=== PATIENT | male | born 1935 | race Caucasian/White ===

== ENCOUNTER 2017-05-01 16:31 | Inpatient (IN) | payer MEDICARE, MEDICAID ==
[~2017-05-01] VITALS: Ht 175.3 cm; Wt 82.3 kg
--- NOTE | ~2017-05-01 | CON ---
PATIENT'S NAME: BEA GARCIA [facility] AGE: 82 Y [address] ROOM: [place] [address] LOCATION: GPCU ADMIT DATE: 05/01/2017 Consultation DISCHARGE DATE: FAMILY PHYSICIAN: SINAN PORRAS MD ATTENDING PHYSICIAN: LUKAS MARSHALL REFERRING PHYSICIAN: LEXIE CASTRO MD REFERRING PROVIDER: Dr. Marshall REASON FOR CONSULTATION: Abdominal distention. HISTORY OF PRESENT ILLNESS: This is a pleasant, 82-year-old gentleman who is known to our Gastroenterology Services with chronic abdominal distention secondary to chronic pseudoobstruction. The patient was hospitalized in February 2016 secondary to abdominal distention, and he did undergo decompression via colonoscopy. At that time, he was also placed on Reglan. The patient was readmitted in October 2016 for the same issues, though no decompression via colonoscopy was warranted at that time. He did relieve well with NG as well as Flexi-Seal. The patient resides at a assisted, and nursing staff noticed over the past few days that he was becoming more distended. Primary physician wanted him admitted to the hospital. On admission, they did place an NG tube with a total of 225 mL out. A Flexi-Seal was also placed with good output of 800 mL. The patient denies any pain. He denies any shortness of breath, nausea, or vomiting at this time. PAST MEDICAL HISTORY: Chronic systolic heart failure; chronic atrial fibrillation, not on any long- term anticoagulation; essential hypertension; chronic kidney disease, stage 3; type 2 diabetes mellitus; chronic constipation with colonic pseudoobstruction; hypothyroidism; and morbid obesity. SOCIAL HISTORY: The patient currently resides at a assisted. Distant history of smoking. No alcohol or illicit drug use. FAMILY HISTORY: Significant for pancreatic cancer. The patient's brother had ischemic heart disease. ALLERGIES: NO KNOWN MEDICATION ALLERGIES. CURRENT MEDICATIONS: PATIENT'S NAME: BEA GARCIA [facility] AGE: 82 Y [address] ROOM: [place] [address] LOCATION: GPCU ADMIT DATE: 05/01/2017 Consultation DISCHARGE DATE: FAMILY PHYSICIAN: SINAN PORRAS MD ATTENDING PHYSICIAN: KHALID,GAYTAN A Please refer to the medication administration record. REVIEW OF SYSTEMS: All-point review of systems was completed, all were negative except for those identified in the History of Present Illness. PHYSICAL EXAMINATION: GENERAL: A very pleasant, 82-year-old male who appears to be in no acute distress. VITAL SIGNS: Temperature 98.2, pulse of 81, respirations of 16, blood pressure 118/66, and oxygen saturation is 97% on room air. SKIN: [place], warm, and dry. No jaundice. HEENT: Head is normocephalic and atraumatic. Pupils are equal, round, and reactive to light. Sclerae are clear, nonicteric. NG tube is in place, connected to low intermittent suction. NECK: Soft and supple. CARDIOVASCULAR: Regular. Normal S1 and S2. RESPIRATORY: Respirations even and unlabored. Lungs clear to auscultation. ABDOMEN: Soft. Slightly distended. Bowel sounds are positive x4 quadrants. Flexi-Seal is in place as well. MUSCULOSKELETAL: No muscle weakness or atrophy. EXTREMITIES: No edema. NEUROLOGICAL: Grossly nonfocal. LABORATORY AND DIAGNOSTIC DATA: White blood cell count 8.7, hemoglobin of 10.8, hematocrit of 34.3, and platelets of 161. Chemistry panel includes a glucose of 101, BUN of 87, creatinine of 3.3, sodium 141, potassium of 4.0, chloride of 113, and CO2 of 16. Albumin of 3.0. Phosphorus of 4.5. Alkaline phosphatase was slightly elevated on admission at 159. Prothrombin time 10.5, INR is 1.00, and PTT of 27. TSH was 4.10 on admission as well. Abdominal x-ray was obtained on admission, showing gas-filled distended colon consistent with colonic pseudoobstruction. ASSESSMENT AND PLAN: Again, this is a very pleasant, 82-year-old gentleman who is known to our Gastroenterology Services with chronic colonic pseudoobstruction. The patient has required colonoscopy and decompression. On admission, NG tube was placed as well as Flexi-Seal with good output. The patient denies any complaints and/or pain. His abdomen is soft and nontender. At this time, no colonic decompression is recommended via colonoscopy as it appears that the Flexi-Seal and NG tube have assisted in his distention. Maintaining a good bowel pattern on dismissal with MiraLAX and possible lactulose is recommended. Further recommendations to be given over the course of the patient's hospitalization. PATIENT'S NAME: BEA GARCIA [facility] AGE: 82 Y [address] ROOM: [id number] [place], [place] [address] LOCATION: [facility] ADMIT DATE: 05/01/2017 Consultation DISCHARGE DATE: FAMILY PHYSICIAN: SINAN PORRAS MD ATTENDING PHYSICIAN: LUKAS MARSHALL Thank you for this consult. RICKIE [place] APRN FOR MD KEAGAN PEREZ/ryne /[id number] d: 05/02/17 1450 t: 05/03/17 1029, CONSULTATION REPORT
--- NOTE | ~2017-05-01 | ER ---
PATIENT'S NAME: RADHA [facility] AGE: 82 Y [address] ROOM: [address] [place], [place] [address] LOCATION: GPCU ADMIT DATE: 05/01/2017 ER/Outpatient Report DISCHARGE DATE: FAMILY PHYSICIAN: SINAN LUCIANO MD ATTENDING PHYSICIAN: LUKAS MARSHALL TIME OF ARRIVAL: 1631 hours. TIME OF EVALUATION: 1704 hours. CHIEF COMPLAINT: Bloating and shortness of breath. HISTORY OF PRESENT ILLNESS: The patient is an 82-year-old male presents to the emergency department today with chief complaint of abdominal bloating and shortness of breath. He reports this started about 14 days prior to arrival. He is accompanied by his who is the primary history provider. The patient does have history of dementia. She reports that this bloating has just progressively gotten worse. He does have a history of this in the past. Apparently has episodes of bloating. He is also having shortness of breath and cough. Denies any chest pain. No nausea or vomiting. No abdominal pain. No fevers or chills. No nausea, vomiting, diarrhea, or constipation. The patient is a resident at [facility]. He has gained about 12 pounds over the past 2 weeks. PAST MEDICAL HISTORY: Chronic systolic heart failure, atrial fibrillation, essential hypertension, chronic kidney disease, type 2 diabetes, chronic constipation with colonic pseudo-obstruction, hypothyroidism, and morbid obesity. PAST SURGICAL HISTORY: None known. SOCIAL HISTORY: The patient currently is at [facility] resident. Denies any tobacco, alcohol, or illicit drug use. ALLERGIES: NO KNOWN DRUG ALLERGY. MEDICATIONS: Please see list. PATIENT'S NAME: RADHA [facility] AGE: 82 Y [address] ROOM: [address] [place] [id number] LOCATION: GPCU ADMIT DATE: 05/01/2017 ER/Outpatient Report DISCHARGE DATE: FAMILY PHYSICIAN: SINAN LUCIANO MD ATTENDING PHYSICIAN: LUKAS MARSHALL PRIMARY CARE DOCTOR,: Sinan Luciano MD. REVIEW OF SYSTEMS: All systems are reviewed by myself and are negative with the exception of those discussed in the HPI and past medical history. PHYSICAL EXAMINATION: VITAL SIGNS: Blood pressure 171/102, pulse 64, respiratory rate 16, temperature 98, oxygen saturation 96% on room air. GENERAL: The patient is an 82-year-old male, appears stated age, no acute distress. HEENT: Head normocephalic, atraumatic. Pupils are equal, round, and reactive to light and accommodation. Extraocular motions are intact. NECK: Supple. There is no nuchal rigidity. CARDIOVASCULAR: Regular rate and rhythm. LUNGS: With diffuse crackles noted bilaterally, worse at the bases. ABDOMEN: Tense, distended with tympanic percussion noted. Bowel sounds are present. There is no tenderness to palpation noted. No rebound, rigidity, or guarding. EXTREMITIES: 2+ pretibial edema in bilateral lower extremities. NEUROLOGICAL: GCS 15. Alert and oriented to person, place, time, not to president. SKIN: Multiple bruising and erythema in the extremities noted. MUSCULOSKELETAL: Left arm is 3/5 muscle strength as well as left leg 3/5 from previous stroke is reported. LABORATORY DATA AND X-RAYS: Obtained. CBC is unremarkable. CMP is unremarkable except for CO2 of 18, alk phos 159. Magnesium is normal. CK, CK-MB, and troponin are unremarkable. Free T4 and TSH: Free T4 is normal. TSH is elevated [place] 4.[address] [address] scan of the abdomen and pelvis is obtained. It did show similar to previous with marked gaseous distention in the colon without point of obstruction most compatible pseudoobstruction and the right kidney mass is mildly increased. Renal cell carcinoma diagnosed with no exclusion. There is also some cholelithiasis is noted. One-view chest is obtained and interpreted by myself, shows mild atelectasis bilaterally. IMPRESSION: 1. Acute on chronic abdominal distention with history of chronic pseudoobstruction. 2. Acute on chronic systolic congestive heart failure. 3. Acute kidney injury on chronic kidney disease. 4. History of cerebrovascular accident with left-sided deficits. 5. Increasing size of mass on left kidney. PATIENT'S NAME: BEA GARCIA [facility] AGE: 82 Y [address] ROOM: [place] [address] LOCATION: GPCU ADMIT DATE: 05/01/2017 ER/Outpatient Report DISCHARGE DATE: FAMILY PHYSICIAN: SINAN LUCIANO MD ATTENDING PHYSICIAN: LUKAS MARSHALL 6. Initial visit. EMERGENCY DEPARTMENT COURSE: The patient was brought back to the examination room. Seen and evaluated by myself. IV is established. Laboratory analysis and imaging are obtained as described above. I have discussed results with the patient's who is at the bedside. I have recommended admission hospital for further evaluation, treatment, and management. I have contacted Dr. Luciano, the patient's primary care doctor. He does request hospitalist admission. I have discussed case with Dr. Marshall. He has seen and evaluated the patient down here in the emergency department, does agree to accept the patient for further evaluation and treatment management. DISPOSITION: The patient is admitted under the care of the Hospitalist Service and Dr. Marshall in stable condition. DO STEPHANIE JACKSON/ryne /[id number] d: 05/02/17 1253 t: 05/04/17 0849, OUTPATIENT REPORT
--- NOTE | ~2017-05-01 | DS ---
PATIENT'S NAME: BEA GARCIA [facility] AGE: 82 Y [address] ROOM: [address] [address] LOCATION: GPCU ADMIT DATE: 05/01/2017 Discharge Summary DISCHARGE DATE: 05/07/2017 FAMILY PHYSICIAN: López Luciano MD ATTENDING PHYSICIAN: Kellen Marshall PRIMARY DIAGNOSES: 1. Colonic pseudo-obstruction. 2. Acute kidney injury with chronic kidney disease, stage III. 3. Acute on chronic diastolic congestive heart failure. 4. Essential hypertension. 5. Right renal mass. 6. Chronic atrial fibrillation, not on anticoagulation. 7. 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 8. Diabetes mellitus, type 2. 9. History of cerebrovascular accident with left-sided weakness. 10. Anemia of chronic kidney disease. OPERATIONS AND PROCEDURES: CT scan of the abdomen and pelvis was performed on 05/01/2017, demonstrating marked gaseous distention of the colon without an obvious obstruction. A right kidney mass was once again seen with some progression. Renal cell carcinoma, the diagnosis of exclusion. HISTORY OF PRESENTING ILLNESS: Please refer to the H and P dictated on 05/01/[address] Marshall. HOSPITAL COURSE: The patient was admitted to the hospital as noted above with a presumptive diagnosis of abdominal distention and colonic pseudo- obstruction. He was placed on progressive care unit. He was also noted to have significant acute kidney injury in the setting of chronic kidney disease, stage III. He received aggressive supportive cares. He was placed on a bowel regimen and Flexi-Seal was placed. Gastroenterology was consulted. He did also have an NG tube placed for decompression and this provided some symptomatic relief for him. He was placed back on his usual regimen of MiraLAX, senna, and lactulose. After removal of the NG tube and the Flexi-Seal, he remained distended but minimally symptomatic. There was concern for volume overload, and he did receive diuresis with IV Bumex. Nephrology was consulted. He showed good response. His diuretic regimen was monitored and adjusted by the Nephrology team. Over the course of his evaluation, he was noted to have a right renal mass. PATIENT'S NAME: BEA GARCIA [facility] AGE: 82 Y [address] ROOM: [id number] [place], [place] [address] LOCATION: GPCU ADMIT DATE: 05/01/2017 Discharge Summary DISCHARGE DATE: 05/07/2017 FAMILY PHYSICIAN: López Luciano MD ATTENDING PHYSICIAN: Kellen Marshall This had been noted on a previous examination and there was evidence for progression. It was concerning for renal cell carcinoma. The patient and his family elected not to pursue any aggressive evaluations and refused consideration for surgery. He received physical therapy and occupational therapy for strength and rehabilitation. He remained hemodynamically stable over the course of his hospital stay. His renal function improved from a creatinine of 3.1 at the point of admission rising to 3.3, but improving to 2.4 by the date of his discharge. This was near his baseline. He was placed on some oral bicarbonate because of persistent metabolic acidosis and on discharge day, his serum bicarb was 21. At that point, it was felt he would be stable enough for discharge back to [facility] for continued clinical monitoring, restorative cares, and outpatient followup with his primary care provider, Dr. Luciano. DIET: As tolerated. ACTIVITY: As tolerated. DISCHARGE INSTRUCTIONS: Encourage physical therapy and occupational therapy. MEDICATIONS: 1. Lasix 20 mg p.o. daily. 2. Acetaminophen 650 mg p.o. q.4 h. p.r.n. pain or fever and t.i.d. scheduled. 3. Acetaminophen suppository 650 mg rectally q.4 hours p.r.n. pain or fever. 4. Aspirin 81 mg p.o. daily. 5. Dulcolax 10 mg IA daily p.r.n. 6. Carvedilol 6.25 mg p.o. b.i.d. 7. Vitamin D3 of 2000 units p.o. daily. 8. Glycerine suppository daily p.r.n. 9. DuoNeb q.4 h. p.r.n. 10. Lactulose 30 mL p.o. daily. 11. Levothyroxine 88 mcg p.o. daily. 12. Magnesium citrate 240 mL p.o. daily p.r.n. constipation. 13. Milk of magnesia 30 mL p.o. daily. 14. Reglan 5 mg p.o. q.a.c. 15. Mirtazapine 30 mg p.o. at night. 16. MiraLAX 17 g p.o. b.i.d. 17. Pravastatin 20 mg p.o. at bedtime. 18. Senna 8.6 two tablets p.o. b.i.d. 19. Effexor XR 150 mg p.o. b.i.d. 20. Sodium bicarb 1300 mg p.o. t.i.d. PATIENT'S NAME: BEA GARCIA [facility] AGE: 82 Y [address] ROOM: [place] [address] [facility] ADMIT DATE: 05/01/2017 Discharge Summary DISCHARGE DATE: 05/07/2017 FAMILY PHYSICIAN: López Luciano MD ATTENDING PHYSICIAN: Kellen Marshall FOLLOWUP: He will follow up with Dr. Luciano in 5 to 7 days. CONDITION ON DISCHARGE: Fair. Total time spent on discharge process 45 minutes. MD PREM SINGH/santyl /[id number] d: 05/08/17 1511 t: 05/11/17 0832, DISCHARGE SUMMARY
--- NOTE | ~2017-05-01 | HP ---
PATIENT'S NAME: BEA GARCIA [facility] AGE: 82 Y [address] ROOM: [place] [address] LOCATION: GPCU ADMIT DATE: 05/01/2017 History & Physical DISCHARGE DATE: FAMILY PHYSICIAN: SINAN PORRAS MD ATTENDING PHYSICIAN: LUKAS LEMOS DATE OF SERVICE: CHIEF COMPLAINT: Abdominal distention. HISTORY OF PRESENT ILLNESS: An 82-year-old, very pleasant gentleman with a past medical history of chronic pseudo obstruction, chronic kidney disease, stage 3, history of CVA, and COPD, who resides in a nursing facility, was admitted through emergency department with chief complaint of abdominal distention. At the nursing facility, his noted that his abdomen is getting progressively distended over the course of the past 2 days. Primary care physician was contacted and he wanted the patient to be admitted to the hospital. On my encounter, the patient is saying that I am feeling wonderful. He does not complain of abdominal distention and he does not complaint of any abdominal pain. He cannot reliably tell that when was the last time he had a bowel movement or he is passing gas. He denied any chest pain, any shortness of breath, any cough, any sputum production, any headache, any trouble with the eyes, but he did endorse that he is having increased leg swelling and increased weight gain in the last 1 month. He does have weakness on the left side from an old stroke. REVIEW OF SYSTEMS: All other systems reviewed and were negative except what is mentioned in the HPI. PAST MEDICAL HISTORY: 1. Chronic systolic heart failure. 2. Chronic atrial fibrillation not on any long-term anticoagulation. 3. Essential hypertension. 4. Chronic kidney disease, stage 3. 5. Type 2 diabetes mellitus. 6. Chronic constipation with colonic pseudo obstruction. 7. Hypothyroidism. 8. Morbid obesity. CURRENT MEDICATIONS: Are being reconciled right now. ALLERGIES: PATIENT'S NAME: BEA GARCIA [facility] AGE: 82 Y [address] ROOM: [place] [address] LOCATION: GPCU ADMIT DATE: 05/01/2017 History & Physical DISCHARGE DATE: FAMILY PHYSICIAN: SINAN PORRAS MD ATTENDING PHYSICIAN: KHALID,GAYTAN A NO KNOWN DRUG ALLERGIES. FAMILY HISTORY: Family history significant for pancreatic cancer. Brother had ischemic heart disease. No history of renal pathology is noted in the family. SOCIAL HISTORY: Currently resides in [facility]. Distant history of smoking. PHYSICAL EXAMINATION: VITAL SIGNS: Blood pressure 160/73, pulse 78, afebrile, respiration rate 16, saturating 95% on room air. GENERAL: No acute distress. Alert and oriented x3. HEENT: Head: Atraumatic, normocephalic. Eyes: Nonicteric. No pallor. Oropharynx, moist mucous membranes. CARDIOVASCULAR: S1, S2. No JVD positive. LUNGS: Clear to auscultation bilaterally. ABDOMEN: Tense, distended with tympanitic percussion noted. Bowel sounds are present. No tenderness is present on superficial or deep palpation. EXTREMITIES: Did reveal +2 extremity edema. PSYCH: Normal affect, mood, and speech. MUSCULOSKELETAL: No muscle tenderness noted. SKIN: Multiple bruises and erythema on the extremities noted. NEURO: Left arm power 3/5. Left lower leg power 3/5. IMAGING DATA: In the emergency department, a CAT scan of the abdomen was done, which per verbal report, does not show any mechanical obstruction, but does shows severely dilated bowel loops. He had a chronic lesion on the left kidney, which per radiology verbal report, has been increasing in size. Rest of the lab work showed negative for troponins. White count of 8.7, hemoglobin 10.7, platelets 161. Creatinine is 3.1 with a baseline around 2, BUN of 17, sodium 137, potassium 4.4, chloride 110, bicarb of 18, calcium 8.2. TSH was 4.1, CK- MB was 5.2. ASSESSMENT: 1. Abdominal distention. 2. Chronic pseudo obstruction. 3. Acute on chronic congestive heart failure. 4. Acute kidney injury on chronic kidney disease, stage 3. 5. Type 2 diabetes mellitus. 6. Atrial fibrillation, not on oral anticoagulation. 7. History of cerebrovascular accident progressively increasing mass in the left kidney. 8. Chronic obstructive pulmonary disease without exacerbation. PATIENT'S NAME: BEA GARCIA [facility] AGE: 82 Y [address] ROOM: [place] [address] LOCATION: [facility] ADMIT DATE: 05/01/2017 History & Physical DISCHARGE DATE: FAMILY PHYSICIAN: SINAN PORRAS MD ATTENDING PHYSICIAN: LUKAS LEMOS 9. Morbid obesity. 10. Anemia of chronic disease. PLAN: We are going to admit this patient to the progressive care unit. NG placement and low intermittent suction will be started. We are going to place a Flexi- Seal as well. Fleet enema will be given. We are going to start some prokinetic drugs in terms of Reglan as well as erythromycin. Gastroenterology consultation will be obtained in the morning. His SUZE looks like is secondary to cardiorenal given he is clearly volume overloaded. I will diurese him overnight with the Bumex 2 mg and monitor his labs overnight. Nephrology consultation will be obtained in the morning. Lesion on the left kidney is concerning. I will defer it to the primary team in the morning regarding consultation for Urology and discussion with the patient regarding plan of that. I will start the patient on DVT prophylaxis with heparin. We will make the patient n.p.o. at this point and await further Gastroenterology recommendations. I spent 1 hour in providing care to this patient with 50% of the times providing direct patient care, talking to the patient during history and physical reviewing old and current medical records, explaining the current diagnosis, prognosis, and management plan. I answered the question and addressed concerns. MD LUNA COLUNGA/ryne /[id number] D: [id number] T: [id number] HISTORY & PHYSICAL
--- NOTE | ~2017-05-01 | CON ---
PATIENT'S NAME: BEA GARCIA [facility] AGE: 82 Y [address] ROOM: [place] [address] LOCATION: GPCU ADMIT DATE: 05/01/2017 Consultation DISCHARGE DATE: FAMILY PHYSICIAN: SINAN LUCIANO MD ATTENDING PHYSICIAN: LUKAS LEMOS DATE OF CONSULTATION: 05/02/2017 REFERRING PHYSICIAN: LEXIE CASTRO MD REQUESTING PHYSICIAN: Dr. Manzanares. REASON FOR CONSULTATION: Elevated BUN and creatinine. 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 He does have a history of diabetes and has 1+ protein in the urine. The patient also has a history of chronic congestive heart failure from systolic dysfunction. The patient was admitted to the hospital in September 2016 when his creatinine was up from baseline of 1.5 to 3.0. In October 2016, creatinine was around 2.0. Later in October, creatinine went up to 2.9. On admission to the hospital, his creatinine is 3.1. I have been asked to see him for a nephrology consultation because of his elevated BUN and creatinine. The patient is normally on Bumex 1 mg a day, and he is also on benazepril. Both of them have been held on admission. His presenting complaint was abdominal distention. No pain. The patient does have a history of chronic constipation and pseudoobstruction. He currently has an NG tube with suction. ALLERGIES: NO KNOWN DRUG ALLERGIES. MEDICATIONS: 1. Tylenol 650 mg a day. 2. Dulcolax 10 mg a day. 3. Vitamin D 2000 international units a day. 4. Levothyroxine 75 mcg a day. 5. Magnesium oxide 400 mg twice a day. 6. Pravastatin 20 mg a day. 7. Venlafaxine 150 mg a day. 8. Acetaminophen p.r.n. 9. Benazepril 10 mg a day. 10. Mirtazapine 30 mg a day. 11. Senokot every day. PATIENT'S NAME: BEA GARCIA [facility] AGE: 82 Y [address] ROOM: [place] [address] LOCATION: GPCU ADMIT DATE: 05/01/2017 Consultation DISCHARGE DATE: FAMILY PHYSICIAN: SINAN LUCIANO MD ATTENDING PHYSICIAN: LUKAS LEMOS 12. Metoclopramide 5 mg 3 times a day. 13. Aspirin 81 mg a day. 14. Bumex 1 mg a day. 15. Carvedilol 3.125 mg twice a day. 16. Lactulose twice a day. 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 PAST SURGICAL HISTORY: Suprapubic catheter placement, appendectomy, bilateral cataract extractions, and colonoscopies. FAMILY HISTORY: No family history of kidney disease or dialysis. SOCIAL HISTORY: The patient is and lives at [facility]. 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 No history of tobacco. He is not drinking alcohol at this time. REVIEW OF SYSTEMS: GENERAL: He denies any fever, chills, or rigors. HEENT: Denies any sore throat or sinus congestion. He reports that he is thirsty. CARDIOVASCULAR: Denies any chest pain or dyspnea on exertion. RESPIRATORY: Denies any cough or sputum production. GASTROINTESTINAL: He is hungry. GENITOURINARY: Denies any dysuria or frequency. MUSCULOSKELETAL: Denies any joint pain or swelling. SKIN: Denies any rash or pruritus. IMMUNOLOGIC: Denies any allergies or hay fever. LYMPHATIC/HEMATOLOGIC: Denies any lymph node enlargement or easy bruising. ENDOCRINE: Denies any heat or cold intolerance. PSYCHIATRIC: Denies any sadness, crying spells, poor concentration, or panic attack. PHYSICAL EXAMINATION: GENERAL APPEARANCE: An 82-year-old white male, lying in the hospital bed, has an NG tube. VITAL SIGNS: Temperature 98.2, pulse 81, and systolic blood pressure 119 and diastolic 66. PATIENT'S NAME: BEA GARCIA [facility] AGE: 82 Y [address] ROOM: [id number] [place], [place] [address] [facility] AD[facility] DATE: 05/01/2017 Consultation DISCHARGE DATE: FAMILY PHYSICIAN: SINAN LUCIANO MD ATTENDING PHYSICIAN: LUKAS LEMOS HEENT: Head: Normocephalic. Pupils are round and equal. Normal eyelids and conjunctivae. Oral cavity clear. Dry mucosa. NECK: Trachea is central. No thyromegaly. Jugular venous pulsation at 10 cm. No bruit. CARDIAC: Heart sounds are audible in all the areas without any gallop or murmur. Pulse is regular in rhythm. LUNGS: Clear to auscultate anteriorly. No intercostal retraction. ABDOMEN: Soft. He has a suprapubic catheter. EXTREMITIES: He has no clubbing or cyanosis. SKIN: No sign of vasculitis. LYMPHATIC: Did not examine lymphatics. He has 1+ leg edema bilaterally. HIGHER PSYCHIATRIC FUNCTION: He has normal speech and memory. NEUROLOGICAL: He is alert and grossly nonfocal. He has 3/5 weakness in the left upper extremity. LABORATORY DATA: Blood work shows WBC of 8.7, hemoglobin 10.8, hematocrit 34.3, and platelet count of 161. Glucose 134, BUN of 79, creatinine of 3.1, sodium 137, potassium 4.4, chloride 110, bicarbonate of 18, and calcium 8.2. Albumin of 3.2. Estimated GFR of 19. ASSESSMENT: 1. Stage 3/4 chronic kidney disease. Etiology is unclear. The patient has a history of diabetes. He does have 1+ protein in the urine. His renal ultrasound suggests chronicity. He also has chronic congestive heart failure from systolic dysfunction and is on diuretic. His creatinine does fluctuate. Probably, this component is related to cardiorenal syndrome. 2. Pseudoobstruction. 3. Chronic constipation. 4. Hypothyroidism. 5. Depressive illness. 6. Diabetes mellitus. 7. Chronic congestive heart failure from systolic dysfunction. 8. Right renal mass. PLAN: I agree with holding his benazepril. We will use loop diuretic on a p.r.n. basis. We will follow renal function closely while he is in the hospital. I looked through his medication list. There are no nephrotoxic agents at this time. We will check his urine for protein-creatinine ratio. I will follow up with imaging study for his right renal mass. I would like to thank Dr. Manzanares for allowing me to participate in this patient's care. I will follow closely. PATIENT'S NAME: BEA GARCIA [facility] AGE: 82 Y [address] ROOM: [id number] [place], [place] [address] [facility] AD[facility]: 05/01/2017 Consultation DISCHARGE DATE: FAMILY PHYSICIAN: SINAN LUCIANO MD ATTENDING PHYSICIAN: LUKAS LEMOS M NARA JOHNSON MD MII/santyl /[id number] CC: Sinan Luciano MD d: 05/02/17 1119 t: 05/05/17 1039, CONSULTATION REPORT
[~2017-05-01 16:31] MED LIST: 8 HOUR650 MG PO; ALOE VESTA141 GM TOP; ALOE VESTA226 GM TOP; BENTYL20 MG PO; CITRATE OF MAG296 ML PO; DITROPAN XL10 MG; DULCOLAX10 MG; DULCOLAX10 MG R; EFFEXOR XR150 MG PO; GLUCERNA237 ML PO; IPRAT-ALBUT 0.5-3 ML INH; K-TAB ER20 MEQ PO; KCL UD LIQ20 MEQ/15; LASIX40 MG PO; LASIX80 MG PO; LEVOTHROID (SY50 MCG; LEVOTHROID (SY88 MCG PO; LOTENSIN10 MG PO; LOTRISONE15 GM TOP; METOCLOPRAMIDE H5 MG PO; MILK OF MA400 MG/5 M; MILK OF MA400 MG/5 M PO; MIRALAX17 GM PO; NORVASC5 MG PO; OXYBUTYNIN CHLO10 MG PO; PRAVACHOL20 MG; PRAVACHOL20 MG PO; REMERON 30 MG30 MG PO; RISPERDAL0.5 MG; RISPERDAL0.5 MG PO; SENOKOT8.6 MG PO; TYLENOL ARTHRI650 MG PO; TYLENOL650 MG; TYLENOL650 MG R; VENLAFAXINE H37.5 MG; VITAMIN D-32000 UNI1; VITAMIN D-32000 UNI1 PO
[2017-05-01 17:34] LABS: BASOPHIL # 0.1 K/uL (0.0-0.2); BASOPHIL % 1.3 %; EOSINOPHIL # 1.1 K/uL (0.0-0.5); EOSINOPHIL % 12.2 %; HEMATOCRIT 34.3 % (33.0-50.0); HEMOGLOBIN 10.8 g/dL (11.0-16.0); IMMATURE GRANULOCYTE % 0.3 %; LYMPHOCYTE # 2.1 K/uL (0.8-4.0); LYMPHOCYTE % 24.7 %; MCH 29.5 pg (27.0-34.0); MCHC 31.5 gm/dL (32.0-36.5); MCV 93.7 fl (83.0-98.0); MONOCYTE # 0.9 K/uL (0.0-1.0); MONOCYTE % 10.1 %; MPV 10.2 fl (9.4-12.4); NEUTROPHIL # (ANC) 4.5 K/uL (1.4-9.0); NEUTROPHIL % 51.4 %; NRBC % 0 /100WBC (0-0.00); PLATELET COUNT 161 K/uL (150-450); RBC 3.66 M/uL (3.50-5.50); RDW-CV 14.8 % (11.9-14.6); WBC 8.7 K/uL (4.0-11.0)
[2017-05-01 17:40] LABS: PROTIME 10.5 SECONDS (9.8-11.4); PTT 27 SECONDS (25-32)
[2017-05-01 17:48] LABS: ALBUMIN 3.2 gm/dL (3.5-5.0); ALK PHOS 159 IU/L (33-138); ALT 31 IU/L (12-78); ANION GAP 13.4 (10.0-19.0); AST 26 IU/L (10-40); CALCIUM 8.2 mg/dL (8.5-10.5); CHLORIDE 110 mMol/L (96-110); CO2 18 mMol/L (22-32); CPK 58 IU/L (35-332); CREATININE 3.1 mg/dL (0.6-1.3); ESTIMATED GFR (MDRD EQUATION) 19; MAGNESIUM 2.2 mg/dL (1.8-2.6); POTASSIUM 4.4 mMol/L (3.7-5.1); SODIUM 137 mMol/L (135-145); TOTAL BILIRUBIN 0.2 mg/dL (0.0-1.5)
[2017-05-01 17:50] LABS: BLOOD UREA NITROGEN 79 mg/dL (6-24)
[2017-05-01] MEDS ORDERED: ASPIRIN LO-DOSE81 MG PO (19:38)
[2017-05-01] MEDS ORDERED: BUMEX1 MG PO (19:39)
[2017-05-01] MEDS ORDERED: COREG 3.1253.125 MG PO (19:43)
[2017-05-01] MEDS ORDERED: ENULOSE SYRUP1 ML PO (19:44)
[2017-05-01] MEDS ORDERED: ADULT GLYCERIN1 EACH R (19:50)
--- NOTE | 2017-05-01 23:50 | NUR ---
PATIENT A/OX3, VS-161/77, 74, 18, 98.0, 97% ON ROOM AIR. PT. IS A FULL LIFT, REPOSITION Q2HR. DNR/DNI. HS: SUPRAPUBIC BYRD, APPY, CATARACTS, CVA, DEMENTIA, HARD OF HEARING, HTN, SLEEP APNEA, CONSTIPATION, OLD PRESSURE ULCERS TO R)BUTTOCKS, DM, CKD, AFIB. PT. ADMITED FOR ABDOMINAL DISTENSION AND CHF EXACERBATION. SLIV TO RIGHT WRIST. STARTED ON IV ABX'S Q12HR. GAVE ENEMA X1, BUMEX X1, REGLAN X1. NG INSERTED TO LOW INTERMITTENT SUCTION.
--- NOTE | 2017-05-02 04:16 | NUR ---
Significant Event: A/OX3, VSS ON ROOM AIR, SATS >90%. NG TUBE PLACE TO L)NARE, HAD 225ml OUT. FLEXISEAL PLACED AFTER FLEET ENEMA GIVEN X1, INTACT WITH 800mL OUT, BELLY MORE SOFT. NO COMPLAINTS OF PAIN THIS SHIFT. PT. IS A FULL LIFT, REPOSITION Q2HR. SUPRAPUBIC BYRD HAD 1000mL UOP. NPO. HOME MEDS DONE. VTE STILL NEEDS TO BE DONE YET. PT. IN ISOLATION FOR VRE/MRSA. CONSULT DR. CASTRO & DR. JOHNSON THIS AM. C-DIFF WAS NEGATIVE. SLIV TO R)WRIST. ABX GIVEN X1. BUMEX & REGLAN GIVEN X1. Follow up: CONTINUE WITH POC.
[2017-05-02 10:33] LABS: CALCIUM 8.2 mg/dL (8.5-10.5); CREATININE 3.3 mg/dL (0.6-1.3); PHOSPHORUS 4.5 mg/dL (2.5-4.9)
--- NOTE | 2017-05-02 13:01 | NUR ---
Chart reviewed. Patient is a resident at [facility]. Will return to [facility] on discharge. Orders on chart. Packet at desk.
--- NOTE | 2017-05-02 19:29 | NUR ---
Significant Event:Patient has rested in bed. No c/o pain. Flexiseal remains intact. Having light brown stool, liquid. NG tube in place, left nares, draining brown liquid. SP trejo intact. Abd is soft, round. Patient remains NPO. Follow up:Continue to monitor
--- NOTE | 2017-05-03 04:33 | NUR ---
Significant Event: Patient A/Ox3 but forgetful. VSS on RA. NG tube to low intermittent suction with 450ml output. Suprapubic catheter with 825ml output. Flexiseal intact with 75ml output. Repositioned q2h. NPO. Abdomen is soft. Follow up: Continue plan of care.
[2017-05-03 05:06] LABS: ALBUMIN 3.1 gm/dL (3.5-5.0); CALCIUM 8.6 mg/dL (8.5-10.5); CREATININE 3.1 mg/dL (0.6-1.3); PHOSPHORUS 4.7 mg/dL (2.5-4.9); POTASSIUM 4.1 mMol/L (3.7-5.1)
[2017-05-03 05:07] LABS: ANION GAP 23.1 (10.0-19.0)
[2017-05-03 08:50] LABS: BICARBONATE 10.6 mmol/L (18.0-23.0); PCO2 26 mmHg (35-45); PO2 79 mmHg (80-90)
--- NOTE | 2017-05-03 15:02 | NUR ---
Significant Event: A/O to person, place forgetfull about date and why he is here. Cooperative with cares. VSS. 2 assist in bed, turn q 2 hours. Suprapubic catheter to mid abdomen draining yellow urine. Flexiseal intact draining light brown liquid stool NG was discontinued thism morning and diet was advanced. Tolerated PO so far, no c/o nausea or pain. PIV to R) posterior hand infusing Bicarb with 0.45 Nacl. Redness to coccyx, aloe applied. 2+ edema to lower extremities. Multiple abrasion, scratches to bilateral arms. Follow up:Continue plan of care
[2017-05-04 04:25] LABS: ALBUMIN 2.6 gm/dL (3.5-5.0); CALCIUM 7.7 mg/dL (8.5-10.5); CREATININE 2.8 mg/dL (0.6-1.3); PHOSPHORUS 3.7 mg/dL (2.5-4.9); POTASSIUM 3.8 mMol/L (3.7-5.1)
--- NOTE | 2017-05-04 04:25 | NUR ---
Significant Event: Patient A/Ox3 but forgetful and very anxious. Patient will continuously ask to return to his room at [facility] even though he knows he is in the hospital. VSS on RA. No output from flexiseal this shift. Patient tolerating PO intake, but his abdomen does appear more distended today. 775ml UOP from suprapubic catheter, foul odor with sediment. Turn Q2H, patient does have an open area on his coccyx. Follow up: Flexyasmaynal out today?
[2017-05-04 04:27] LABS: ANION GAP 15.8 (10.0-19.0)
--- NOTE | 2017-05-04 18:47 | NUR ---
PATIENT TURN Q 2 HRS. HOSPITALIST ROUNDED AT FIRST ASSESSMENT, ORDERED TO D/C FLEXISEAL. PATIENT HAD 2 SM LIQUID INC STOOLS THIS SHIFT. PATIENT ATE MOST OF MEALS, TOLERATED WELL. PATIENT STATED DID NOT FEEL ABDOMEN WAS MORE DISTENDED. ABDOMEN WAS FAIRLY SOFT, BUT VERY ROUND. WAS AT BEDSIDE PART OF SHIFT.
[2017-05-05 04:44] LABS: ALBUMIN 2.5 gm/dL (3.5-5.0); ANION GAP 12.8 (10.0-19.0); CALCIUM 7.8 mg/dL (8.5-10.5); CREATININE 2.5 mg/dL (0.6-1.3); POTASSIUM 3.8 mMol/L (3.7-5.1); TOTAL BILIRUBIN 0.3 mg/dL (0.0-1.5); TOTAL PROTEIN 5.7 g/dL (6.0-8.4)
--- NOTE | 2017-05-05 06:47 | NUR ---
Significant Event: Patient alert and oriented x3. Forgetful at times. Vital signs stable. On RA. Patient attempts to cough up secretions. Nurse offered breathing treatment. Patient refused. Repositioned Q2. 1500ml uop this shift. Abdominal distention continues. Patient states no pain or tenderness. Flat affect. Lactated Ringers at 75ml/hr to Rt. forearm PIV. Wants to work with PT/OT while in hospital and at [facility]. Accucheck 128 at HS. No coverage needed. Patient calm and cooperative with all cares. Follow up: Continue to monitor per plan of care.
--- NOTE | 2017-05-05 17:41 | NUR ---
PATIENT WORKED WITH PT/OT. REPO Q 2 HRS IN BED. CONTINUES TO BE WEAK. GAVE MIRALAX AND LACTULOSE. PATIENT HAD MODERATE INC BM. D/C'D IV FLUIDS. VSS.
--- NOTE | 2017-05-06 04:17 | NUR ---
Significant Event: Patient alert and oriented x3. Forgetful at times. Very drowsy this shift. Better with third assessment. Stated that PT/OT wore patient out. SBP 100s-130s. HR 80s-100s. All other vital signs stable. On RA. Turned side to side Q2. 650ml uop this shift. Abdominal distention worse this shift. Abdomin firm. No complaints of pain or tenderness. Right forearm PIV saline locked. Accucheck at HS 110. No coverage needed. Patient calm and cooperative with all cares. Follow up: Continue to monitor per plan of care.
[2017-05-06 06:27] LABS: ALBUMIN 2.6 gm/dL (3.5-5.0); ANION GAP 13.8 (10.0-19.0); CREATININE 2.4 mg/dL (0.6-1.3); POTASSIUM 3.8 mMol/L (3.7-5.1); TOTAL BILIRUBIN 0.3 mg/dL (0.0-1.5); TOTAL PROTEIN 5.9 g/dL (6.0-8.4)
--- NOTE | 2017-05-06 12:49 | NUR ---
A - PT SCREENED D/T LOS. 2+ BLE EDEMA. GLU 91, BUN/[employer] 68/2.4, ALB 2.6. DIET: 2-3 GM NA+, INTAKE REFUSED TO 25%. EST NEEDS: 5121-2140 KCALS, 82-99 GM PROTEIN, 1 ML/KCAL. PER DISCHARGE HUDDLE, PT TO DC TOMORROW. D - AT RISK W/ INADEQUATE ORAL INTAKE R/T DECREASED APPETITE AEB INTAKE RECORD. I - GOAL: 50% INTAKE BY DISMISSAL. M/E - WILL OFFER ENSURE TID W/ MEALS AND F/U ON INTAKE IN 2-4 DAYS IF STILL HERE.
--- NOTE | 2017-05-06 19:18 | NUR ---
Significant Event: Oriented to qustions but very drowsy, reports this is patient's baseline. Slow to respond, flat affect. Difficulty swallowing thin liquids at times, pt refuses thickened liquids. Suprapubic catheter. 2 BM this shift. VSS, afebrile, room air. NS at 50 ml/hr to R)wrist. Follow up: DC to [facility] Saturday?
--- NOTE | 2017-05-07 05:01 | NUR ---
Significant Event: A/O x3. slow to respond. Left sided droop, weakness due to stroke from 7 years ago. sleepy throughout shift. Answers questions appropriately. VSS on RA. LS clear/dim. refused supper. hyperactive bowel sounds. 115 blood sugar. Suprapubic trejo with 315 uop. 2 loose incontinent BMs. Turn q 2 hours. Follow up: Possible transfer today back to group home
[2017-05-07 05:36] LABS: ALBUMIN 2.8 gm/dL (3.5-5.0); ANION GAP 12.7 (10.0-19.0); CALCIUM 8.3 mg/dL (8.5-10.5); CREATININE 2.6 mg/dL (0.6-1.3); POTASSIUM 3.7 mMol/L (3.7-5.1); TOTAL BILIRUBIN 0.3 mg/dL (0.0-1.5); TOTAL PROTEIN 6.2 g/dL (6.0-8.4)
--- NOTE | 2017-05-07 10:50 | NUR ---
Called and updated Marlen at [facility] that patient has signed discharge orders on chart. They can pick patient up at 12:30. Updated Dali NEVES. Orders faxed to [phone].
--- NOTE | 2017-05-07 12:33 | NUR ---
PT IS A/O AND COOPERATIVE. DENIES PAIN. LUNG SOUNDS COARSE AND HAS POOR COUGH. HEAVY TWO ASSIST PIVOT OR LIFT TO CHAIR. DISTENDED ABDOMEN. ATE BREAKFAST 100% AND REFUSED LUNCH. HX OF STROKE WITH POOR GI MOTILITY. CT SHOWE PSEUDO OBSTRUCTION. SUPRA PUBIC CATHETER DRAINING SALLIE URINE. INC OF STOOL. IV D/C'D PER TRANSFER. TURN Q 2 HOURS. TRANSFERRED PER CAREGIVER TO [facility] AT 1245.
--- NOTE | 2017-05-07 13:14 | NUR ---
PT. LIFTED WITH SIT TO STAND TO WHEELCHAIR WITH THREE ASSIST. IV D/C'D PER DISCHARGE. DENIES PAIN. DISCHARGE PACKET GIVEN TO TRANSFER CAREGIVER AND REPORT CALLED TO [facility] NURSING STAFF. DISCHARGED PER WHEELCHAIR WITH CAREGIVER TO FRONT DOOR.
== END 2017-05-07 12:44 | disposition disaster alternative care site (69) | DRG 391 ==
LOC: GMED 16:31 → GPCU 18:34
PROVIDERS: Emergency Medicine; Internal Medicine; Internal Medicine Nephrology; ADMIT Internal Medicine
DX: K59.8 Other specified functional intestinal disorders (principal); J96.21 Acute and chronic respiratory failure with hypoxia; N17.9 Acute kidney failure, unspecified; I50.23 Acute on chronic systolic (congestive) heart failure; I13.0 Hypertensive heart and chronic kidney disease with heart failure and stage 1 through stage 4 chronic kidney disease, or unspecified chronic kidney disease; E87.2 Acidosis; I69.354 Hemiplegia and hemiparesis following cerebral infarction affecting left non-dominant side; N18.3 Chronic kidney disease, stage 3 (moderate); J44.9 Chronic obstructive pulmonary disease, unspecified; D63.1 Anemia in chronic kidney disease; E66.01 Morbid (severe) obesity due to excess calories; F03.90 Unspecified dementia, unspecified severity, without behavioral disturbance, psychotic disturbance, mood disturbance, and anxiety; E11.22 Type 2 diabetes mellitus with diabetic chronic kidney disease; E03.9 Hypothyroidism, unspecified; K59.09 Other constipation; N28.89 Other specified disorders of kidney and ureter; I48.2 Chronic atrial fibrillation; Z90.49 Acquired absence of other specified parts of digestive tract; Z86.73 Personal history of transient ischemic attack (TIA), and cerebral infarction without residual deficits
CPT/HCPCS: J1364; J1644; J2765; J7030; J7040; J7050; J7120

== ENCOUNTER → 2017-05-21 | Outpatient (CLI) | payer MEDICARE, MEDICAID ==
[~2017-05-21] MED LIST changes: +ADULT GLYCERIN1 EACH R; +ASPIRIN LO-DOSE81 MG PO; +BUMEX1 MG PO; +COREG 3.1253.125 MG PO; +ENULOSE SYRUP1 ML PO
== END | disposition disaster alternative care site (69) ==
LOC: LGSMG 09:41
DX: N17.9 Acute kidney failure, unspecified (principal); E11.9 Type 2 diabetes mellitus without complications

== ENCOUNTER 2017-07-11 15:58 | Emergency (ER) | payer MEDICARE, MEDICAID ==
--- NOTE | ~2017-07-11 | ER ---
PATIENT'S NAME: [facility] AGE: 82 Y [address] ROOM: [place] [address] LOCATION: [facility]ED ADMIT DATE: 07/11/2017 ER/Outpatient Report DISCHARGE DATE: 07/11/2017 FAMILY PHYSICIAN: López Luciano MD ATTENDING PHYSICIAN: Lara Ndiaye Time of Arrival: 1558 hours. Time Seen: 1600 hours. IDENTIFICATION: An 82-year-old male. CHIEF COMPLAINT: Illness. HISTORY OF PRESENT ILLNESS: The patient is an 82-year-old male from the longterm who states that he is feeling fine and does not know why he is here. The longterm reported to our nursing staff that he was getting close to being on dialysis and his creatinine had elevated and that his urine was green. They also said he had weakness and was not ambulating. According to the patient and his , he has not ambulated for years after having had a stroke. He has a suprapubic catheter. He has had no fever, chills, and he himself has no complaints. PAST MEDICAL HISTORY: ALLERGIES: No known drug allergies. CURRENT MEDICATIONS: 1. 1200 mL fluid restriction. 2. Acetaminophen suppository 650 mg per rectum every 4 hours as needed. 3. Acetaminophen 650 mg p.o. q.4 hours as needed. 4. Acetaminophen 650 mg t.i.d. 5. Anoro Ellipta aerosol powder breath activated 62.5/25 one puff at h.s. 6. Aspirin 81 mg daily. 7. Carvedilol 6.25 mg b.i.d. 8. Dulcolax suppository 10 mg p.r.n. constipation. 9. DuoNeb 0.5/2.5, one vial every 4 hours as needed. 10. Glucose tablet 4 g by mouth p.r.n. hypoglycemia. 11. Glucagon 1 mg subcu as needed for hypoglycemia. 12. Glycerin suppository p.r.n. 13. Lactulose 15 mL b.i.d. 14. Lasix 40 mg b.i.d. 15. Levothroid 88 mcg daily. 16. Mag citrate 240 mL as needed. 17. Metolazone 10 mg once a day. PATIENT'S NAME: [facility]HA [facility] AGE: 82 Y [address] ROOM: [place], [place] [address] LOCATION: [facility]ED ADMIT DATE: 07/11/2017 ER/Outpatient Report DISCHARGE DATE: 07/11/2017 FAMILY PHYSICIAN: López Luciano MD ATTENDING PHYSICIAN: Lara Ndiaye 18. Milk of magnesia 30 mL p.r.n. 19. MiraLAX 17 g b.i.d. 20. Mirtazapine 30 mg daily. 21. Pravastatin 20 mg daily. 22. Reglan 5 mg t.i.d. 23. Senokot one tablet 2 times a day. 24. Tylenol Arthritis 650 mg q.4 hours p.r.n. 25. Venlafaxine 150 mg b.i.d. 26. Vitamin D3 2000 units daily. The patient's records reflect advanced directives of DNR and DNI. MEDICAL PROBLEMS: Chronic systolic congestive heart failure; chronic atrial fibrillation, not on any long-term anticoagulation; hypertension; chronic kidney disease; diabetes mellitus type 2; chronic constipation with colonic pseudo-obstruction; hypothyroidism; morbid obesity; right renal mass; diabetes mellitus type 2; history of previous CVA with left-sided weakness. PRIOR SURGERY: Suprapubic catheter placement, appendectomy, bilateral cataract extractions, and colonoscopies. FAMILY HISTORY: No pertinent family history identified. SOCIAL HISTORY: The patient is . He lives at [facility]. Tobacco use, denies. Alcohol use, denies. Drug use, denies. REVIEW OF SYSTEMS: All systems were reviewed and negative other than what is noted in the HPI. PHYSICAL EXAMINATION: VITAL SIGNS: Weight 81 kg, blood pressure 130/74, pulse 68, respirations 14, temperature 98.7, saturation is 94% on room air. GENERAL: An obese 82-year-old male in no acute distress. HEENT: Head: Normocephalic, atraumatic. Ears: TMs are translucent both ears. Eyes: Pupils are equal and reactive to light and accommodation. Extraocular movements are intact. Nose: Mucosa pink. No lesions. Mouth: No lesions. Pharynx benign. NECK: Supple. No lymphadenopathy. LUNGS: Clear to auscultation. HEART: Regular rate and rhythm. ABDOMEN: Protuberant, bowel sounds present. He is moderately distended. He is nontender. He has a suprapubic catheter in place draining cloudy urine. PATIENT'S NAME: BEA GARCIA [facility] AGE: 82 Y [address] ROOM: [place], [place] [address] LOCATION: ED ADMIT DATE: 07/11/2017 ER/Outpatient Report DISCHARGE DATE: 07/11/2017 FAMILY PHYSICIAN: López Luciano MD ATTENDING PHYSICIAN: Lara Ndiaye The patient denies any abdominal pain or tenderness and states that, that abdomen is normally distended. LABORATORY DATA: EKG: Atrial fibrillation at 66 beats per minute. PVCs present, nonspecific ST-T wave changes. No change when compared to previous EKG. Sodium 138; potassium 3.5; chloride 101; CO2 25; BUN 122; creatinine 3.7, which is elevated from 2.6, May 07. Blood sugar 182. Liver enzymes are normal. CPK 46, CK-MB 2.5. Troponin I less than 0.040. UA from the suprapubic catheter, pH 7, specific gravity 1.005, leukocytes positive, nitrites negative, 100 mg/dL of protein, 10-20 white cells, 5-10 red cells, 5-10 epithelial cells, many bacteria, few white blood cell clumps. Culture pending. Hemoglobin 11.4, hematocrit 35.3, platelets 192, white count 8.9 with a normal differential. Lactate 1.3, procalcitonin 0.21. Blood culture is pending. Urine culture pending. Chest x-ray, 1 view. No acute process, pending Radiology over-read. IMPRESSION: 1. Acute kidney injury, may be some prerenal component. I did talk with the patient and his . He refuses admission. We will remove his fluid restriction for the time being and he will follow up in 1-[address]. Garner agrees with this plan of care. 2. Possible urinary tract infection. The patient has a suprapubic catheter. We will wait on urine culture results. He is afebrile here in the emergency room. His white count is normal. Procalcitonin was mildly elevated. His does understand the risk of infection and the possibility that this will need to be treated and could get worse. Again, they do not want him to stay here in the hospital. All other medical problems are as per the past medical history. He will return to [facility] with no fluid restriction. CBC and CMS tomorrow, results to Dr. Luciano and follow up with Dr. Luciano in 1-3 days. Follow up sooner if any problems or concerns. The patient and his understand and agree, and all questions have been answered. LARA NDIAYE MD CAR/modl /[id number] d: 07/12/1731 t: 07/13/17 1501, OUTPATIENT REPORT
[2017-07-11 16:51] LABS: BILIRUBIN URINE NEGATIVE (NEGATIVE); BLOOD URINE 150 /UL (NEGATIVE); COLOR URINE YELLOW (YELLOW); GLUCOSE URINE NEGATIVE (NEGATIVE); KETONE URINE NEGATIVE (NEGATIVE); LEUKOCYTES URINE 500 /UL (NEGATIVE); NITRITE URINE NEGATIVE (NEGATIVE); PROTEIN URINE 100 mg/dL (NEGATIVE); SPEC GRAVITY URINE 1.005 (1.003-1.035); TURBIDITY URINE CLEAR (CLEAR); UROBILINOGEN URINE NORMAL (NORMAL)
[2017-07-11 16:58] LABS: BASOPHIL # 0.1 K/uL (0.0-0.2); BASOPHIL % 0.9 %; EOSINOPHIL # 0.7 K/uL (0.0-0.5); EOSINOPHIL % 7.7 %; HEMATOCRIT 35.3 % (33.0-50.0); HEMOGLOBIN 11.4 g/dL (11.0-16.0); IMMATURE GRANULOCYTE % 0.4 %; LYMPHOCYTE # 1.9 K/uL (0.8-4.0); LYMPHOCYTE % 21.3 %; MCH 29.6 pg (27.0-34.0); MCHC 32.3 gm/dL (32.0-36.5); MCV 91.7 fl (83.0-98.0); MONOCYTE # 0.7 K/uL (0.0-1.0); MONOCYTE % 7.7 %; MPV 10.1 fl (9.4-12.4); NEUTROPHIL # (ANC) 5.5 K/uL (1.4-9.0); NRBC % 0 /100WBC (0-0.00); PLATELET COUNT 192 K/uL (150-450); RBC 3.85 M/uL (3.50-5.50); RDW-CV 13.9 % (11.9-14.6); WBC 8.9 K/uL (4.0-11.0)
[2017-07-11 17:01] LABS: AMORPHOUS URINE 2+ (NEGATIVE); BACTERIA URINE MANY (NEGATIVE); WBC CLUMPS URINE FEW (NEGATIVE)
[2017-07-11 17:18] LABS: ALBUMIN 3.1 gm/dL (3.5-5.0); ALK PHOS 173 IU/L (33-138); ALT 30 IU/L (12-78); ANION GAP 15.5 (10.0-19.0); AST 20 IU/L (10-40); CALCIUM 8.2 mg/dL (8.5-10.5); CHLORIDE 101 mMol/L (96-110); CO2 25 mMol/L (22-32); CPK 46 IU/L (35-332); CREATININE 3.7 mg/dL (0.6-1.3); POTASSIUM 3.5 mMol/L (3.7-5.1); SODIUM 138 mMol/L (135-145); TOTAL PROTEIN 6.8 g/dL (6.0-8.4)
[2017-07-11 17:19] LABS: BLOOD UREA NITROGEN 122 mg/dL (6-24); TOTAL BILIRUBIN 0.2 mg/dL (0.0-1.5)
== END 2017-07-11 18:43 | disposition disaster alternative care site (69) ==
LOC: GMED 15:58
PROVIDERS: Family Medicine
DX: N17.9 Acute kidney failure, unspecified (principal); E11.22 Type 2 diabetes mellitus with diabetic chronic kidney disease; I13.0 Hypertensive heart and chronic kidney disease with heart failure and stage 1 through stage 4 chronic kidney disease, or unspecified chronic kidney disease; I50.9 Heart failure, unspecified; N18.9 Chronic kidney disease, unspecified; J44.9 Chronic obstructive pulmonary disease, unspecified; E78.5 Hyperlipidemia, unspecified; E03.9 Hypothyroidism, unspecified; E66.01 Morbid (severe) obesity due to excess calories; E87.6 Hypokalemia; I48.91 Unspecified atrial fibrillation; Z96.0 Presence of urogenital implants; Z79.82 Long term (current) use of aspirin; Z79.899 Other long term (current) drug therapy; Z90.49 Acquired absence of other specified parts of digestive tract; Z98.49 Cataract extraction status, unspecified eye

== ENCOUNTER → 2017-07-11 | Outpatient (CLI) | payer MEDICARE, MEDICAID | END | disposition disaster alternative care site (69) | LOC: GAMB 15:45 | DX: R53.1 Weakness (principal) ==

== ENCOUNTER → 2017-07-12 | Outpatient (CLI) | payer MEDICARE, MEDICAID ==
[2017-07-12 08:29] LABS: BASOPHIL # 0.1 K/uL (0.0-0.2); BASOPHIL % 0.6 %; EOSINOPHIL # 0.7 K/uL (0.0-0.5); EOSINOPHIL % 6.1 %; HEMATOCRIT 35.8 % (33.0-50.0); HEMOGLOBIN 11.7 g/dL (11.0-16.0); IMMATURE GRANULOCYTE # 0.1 K/uL (0.0-0.3); IMMATURE GRANULOCYTE % 0.4 %; LYMPHOCYTE # 1.4 K/uL (0.8-4.0); LYMPHOCYTE % 11.6 %; MCHC 32.7 gm/dL (32.0-36.5); MCV 91.8 fl (83.0-98.0); MPV 10.5 fl (9.4-12.4); NEUTROPHIL # (ANC) 8.7 K/uL (1.4-9.0); NEUTROPHIL % 73.3 %; NRBC % 0 /100WBC (0-0.00); PLATELET COUNT 168 K/uL (150-450); RDW-CV 13.7 % (11.9-14.6); WBC 11.9 K/uL (4.0-11.0)
[2017-07-12 08:42] LABS: ALBUMIN 3.2 gm/dL (3.5-5.0); CALCIUM 8.2 mg/dL (8.5-10.5); CREATININE 3.5 mg/dL (0.6-1.3); TOTAL BILIRUBIN 0.2 mg/dL (0.0-1.5); TOTAL PROTEIN 6.6 g/dL (6.0-8.4)
== END ==
LOC: LJOHN2 08:02
PROVIDERS: Family Medicine
DX: I12.9 Hypertensive chronic kidney disease with stage 1 through stage 4 chronic kidney disease, or unspecified chronic kidney disease (principal); N18.4 Chronic kidney disease, stage 4 (severe); B99.9 Unspecified infectious disease